=== PATIENT | female | born 1995 | race Native Hawaiian/Other Pacific Islander ===

== ENCOUNTER 2025-07-25 08:23 | Outpatient (REF) | payer MEDICAID, SELFPAY ==
--- OUTSIDE RECORDS SUMMARY | 2025-04-30 05:30 | XMS_ITS ---
Author Organization [facility] Address [address] [place] [id number] Care Team Providers Care Pizzamaker Name Role Phone NO, PCP Primary Care Provider [facility] Mariella Unavailable [phone] REASON FOR VISIT office: Intake/ Po Box Encounters Encounter Location Date Provider Diagnosis [facility] [address] [place] [phone] 04/30/2025 [facility] Plan Of Treatment No Information Progress Notes * Mariluz GARCIADOB:1995 (30 yo F)Acc No.[id number]:04/30/2025 Patient: Mariluz WING Provider: Gretchen WALLIS [facility] :1995 A ge:30 Y S ex:Female Date:04/30/2025 Address:[address] [place], [place] [id number] Pcp:PCP NO Subjective: * Chief Complaints: * 1 . office: Intake/ Po Box. * HPI: S ocial Service: Date of encounter 0 04/30/25. R eferral Source S een at: [facility]. A ction Taken I nsurance eligibility assessed 0 04/30/2025 [id number] MHSTD 04/30/25 gd3, S NAP application 0 04/30/2025 [facility]. CHW assisted client with process and intake,, AR submitted. 04/30/25 gd3. F ollow-up Required:?no. P t comprehension P atient understood process and assisted with process. * Medical History: Objective: Assessment: Plan: * Images: Billing Information: Care Plan Details* * Electronic signature of [facility] on 07/25/2025 at 08:49 AM EDT Sign off status: Pending * Provider: Gretchen WALLIS [facility] Date: 0 04/30/2025 Generated for Kevyn Noel/Antonietta on: 0 07/25/2025 08:49 AM EDT History and Physical Notes * HPI (History of Present Illness) Category Sub-Category Detail Notes Category Not es Social Service Referral Source Seen at: [facility] Follow-up Required: no Pt comprehension Patient understood p rocess and assisted with process Action Taken Insurance eligibilit y assessed: 04/30/2025 [id number] MHSTD 04/30/25 gd3 SNAP application: 04/30/2025 [facility] in [facility]. CHW assisted client with process and intake,, AR submitted. 04/30/25 Date of encounter 04/30/25
--- OUTSIDE RECORDS SUMMARY | 2025-07-25 08:49 | XMS_ITS | Encounter Summary ---
Author Organization [employer] Address [address] [facility] [address] [place] [address] Care Team Providers Care First Assist Name Role Phone Colby Thurman CNP Primary Care Provider [phone] Reason for Visit * Reason Onset Date Comments chart prep 07/20/2025 Encounter Details Date Type Department Care Team ([facility] st Contact Info) Description 07/20/2025 Telephone [facility] MED & PEDS [address] [place] [address] Colby Thurman CNP [address] [place] [address] chart prep Social History Tobacco Use Types Packs/Day Years Used Date Smoking Tobacco: Never Smokeless Tobacco: Never Alcohol Use Standard Drinks/Week Comments Never 0 (1 standard drink = 0.6 oz pur e alcohol) Depression Answer Date Recorded Patient Health Questionnaire-9 Score 2 07/04/2025 Patient Health Questionnaire-9 Score 2 07/04/2025 Last PHQ-9: Questionnaire Data Not on file 0 07/04/2025 Housing Stability Answer Date Recorded What is your housing situation today? I have cinthia camejo 07/04/[address] you li ve. Do you have problems with any of the following? Inadequate heat 07/04/2025 Food Insecurity Answer Date Recorded Within the past 12 months, y ou worried that your food would run out before you got money to buy more: Sometimes True 2024 Within the past 12 months,th e food you bought just didn't last and you didn't have enough money to get more: Sometimes True 07/04/2025 Transportation Answer Date Recorded In the past 12 months, has l ack of transportation kept you from medical appts, meetings, work or from getting things needed for daily living? No 07/04/2025 Utilities Answer Date Recorded In the past 12 months, has t he electric, gas, oil or water company threatened to shut off services in your home? No 07/04/2025 Depression Answer Date Recorded Patient Health Questionnaire-2 Score 1 07/04/2025 Internet Access Answer Date Recorded Internet Access Q1 No 07/04/2025 Internet Access Q2 I cannot afford it 07/04/2025 Comments No Sex and Gender Information Value Date Recorded Sex Assigned at Female 07/04/2025 2:08 PM EDT Legal Sex Female 3:03 PM EDT Gender Identity Female 07/04/2025 2:08 PM EDT Sexual Orientation Straight 07/04/2025 2: 08 PM EDT documented as of this encounter Miscellaneous Notes * Telephone Encounter - Daphney Mcleod [place] - 07/20/2025 1:50 PM EDT Chart Prep Labs: not done Images: not applicable Referrals: appointment pending Vaccines due: PCV20, Tdap, Hep B, Td, HPV, and DTAP Screenings: STI screening and LMP Overdue care gaps: Not applicable documented in this encounter Plan of Treatment Upcoming Encounters Date Type Department Care Team (Late st Contact Info) Description 07/26/2025 10:00 AM EDT Procedure Visit [facility] MED & PEDS [address] [place] [address] Colby Thurman, SONAR SUBSYSTEM EQUIPMENT OPERATOR [address] [place] [address] 10/30/2025 9:30 AM EST Office Visit [facility] OPTOMETRY [address] [place], [place] [phone] Sara Glaser, OD [address] [place] [address] documented as of this encounter Visit Diagnoses Not on filedocumented in this encounter Additional Health Concerns Assessment Noted Time PHQ-9 Depression Total Score: 2 07/04/20 25 4:19 PM EDT documented as of this encounter Care Teams First Assist Relationship Specialty Start Date End Date Colby Thurman CNP [address] [place] [id number] PCP - General Family Medicine 07/04/25 documented as of this encounter
--- OUTSIDE RECORDS SUMMARY | 2025-07-25 08:49 | XMS_ITS | Clinical Summary ---
Author Organization [employer] Address [address] [facility] [address] [facility] [address] [place] [address] Care Team Providers Care Rail Signal Designer Name Role Phone Colby Thurman SUE Primary Care Provider [phone] Allergies Active Allergy Reactions Criticality Noted Date Comments Morphine And Codeine Rash Medium 07/04/2025 Penicillins Rash Low 07/04/2025 Medications No known medications Active Problems Problem Noted Date Diagnosed Date Encounter to establish care 07/05/2025 Assessment & Plan (07/05/2025 1:01 PM EDT): HM due -routine lab work ordered -IMMs due include Tdap, PCV20, covid, flu, will obtain Hep B serologies to determine immunity status -We will plan to repeat pap smear due to inability to obtain records and to ensure normal cytology and HPV status -HIV/Hep C screening ordered -Referral to dental and vision placed Peripheral vascular disease 07/04/2025 Assessment & Plan (07/05/2025 12:57 PM EDT): Pt pedal pulses 2+ bilaterally, no calf tenderness or swelling or excessive heat Discussed conservative measures including lifestyle modifications such as weight loss and prevention of comorbidities such as HLD, HTN, and T2DM I plan to obtain new lab studies to confirm there are no present co morbidities Also based on pt's on hx and LLE atrophy, it appears that pt PVD may be advanced and may require revascularization. I will obtain records from patient, I had her bring records to medical records to be scanned in chart. I also placed a referral to vascular. Asthma 07/04/2025 Assessment & Plan (07/05/2025 12:58 PM EDT): Asthma is controlled, pt not on antiasthmatic medications Appears to be from childhood Encounters Date Type Department Care Team Description 07/20/2025 Telephone [facility] MED & PEDS [address] [place] [address] Colby Thurman CNP chart prep 07/04/2025 2:45 PM EDT Office Visit [facility] MEDICINE [address] [place] [address] Colby Thurman CNP Peripheral vascular disease (CMS/HCC) (Primary Dx); Mild asthma, unspecified whether complicated, unspecified whether persistent; Encounter to establish care 07/04/2025 Travel 07/03/2025 Telephone [facility] [address] [place] [address] Colby Thurman CNP Chart Prep 06/27/2025 Patient Outreach [facility] MED & PEDS [address] [place] [address] Colby Thurman CNP Pre-visit Planning ([facility] unable to reach [facility] [place]) 06/05/2025 Telephone [facility] [address] [place] [address] Andrew Bermudez MD from Last 3 Months Family History Medical History Relation Name Comments Throat cancer Maternal Grandmother Relation Name Status Comments Maternal Grandmother Social History Tobacco Use Types Packs/Day Years Used Date Smoking Tobacco: Never Smokeless Tobacco: Never Tobacco Cessation:Counseling Given: Not Answered Alcohol Use Standard Drinks/Week Comments Never 0 [...] I cannot afford it 07/04/2025 Comments No Intention Date Recorded No desire to become (finding) 0 07/04/2025 Sex and Gender Information Value Date Recorded Sex Assigned at Female 07/04/2025 2:08 PM EDT Legal Sex Female 3:03 PM EDT Gender Identity Female 07/04/2025 2:08 PM EDT Sexual Orientation Straight 07/04/2025 2: 08 PM EDT Last Filed Vital Signs Vital Sign Reading Time Taken Comments Blood Pressure 110/80 07/04/2025 3:09 PM EDT Pulse 87 07/04/2025 3:09 PM EDT Temperature 36.7 C (98 F) 07/04/2025 3:09 PM EDT Respiratory Rate 16 07/04/2025 3:09 PM EDT Oxygen Saturation 99% 07/04/2025 3:09 PM EDT Inhaled Oxygen Concentration - - Weight 83.3 kg (183 lb 9.6 oz) 07/04/2025 3:09 P M EDT Height 160 cm (5' 3 ) 07/04/2025 3:09 PM EDT Body Mass Index 32.52 07/04/2025 3:09 PM EDT Plan of Treatment Upcoming Encounters Date Type Department Care Team (Late st Contact Info) Description 07/26/2025 10:00 AM EDT Procedure Visit [facility] MED & PEDS [address] [place] [address] Colby Thurman, HOUSEKEEPING/LAUNDRY [address] [place] [address] 10/30/2025 9:30 AM EST Office Visit [facility] OPTOMETRY [address] [place] [address] Sara Glaser, OD [address] [place] [address] Health Maintenance Due Date Last Done Comments HIV Screening 1993 HPV Vaccines (1 - 3-dose series) 2008 Hepatitis C Screening 2011 DTaP/Tdap/Td Vaccines (1 - Tdap) 2012 Hepatitis B Vaccines (1 of 3 - 19+ 3-dose series) 2012 Pneumococcal Vaccine: Pediatrics (0 to 5 Years) and At-Risk Patients (6 to 49) Years (1 of 2 - PCV) 2012 Pap Smear 2014 Cervical Cancer Screening 2023 HPV/Cotest 2023 COVID-19 Vaccine (1 - 2023-2 5 season) 2025 Influenza Vaccine (#1) 2025 Alcohol/Substance Use Screening 07/04/2026 07/04/2025 Depression Screening 07/04/2026 07/04/2025, 07/04/2025 Disability Screening 07/04/2026 07/04/2025 SDOH Screening 07/04/2026 07/04/2025 Tobacco Screening 07/04/2026 07/04/2025 Family Planning (PISQ) 07/05/2026 07/05/2025 Zoster Vaccines (1 of 2) 2043 RSV Patients and Patients Aged 60 years or older (1 - 1-dose 75+ series) 2068 HIB Vaccines Aged Out No longer eligi ble based on patient's age to complete this topic Hepatitis A Vaccines Aged Out No long er eligible based on patient's age to complete this topic IPV Vaccines Aged Out No longer eligi ble based on patient's age to complete this topic Meningococcal B Vaccine Aged Out No l onger eligible based on patient's age to complete this topic Meningococcal Vaccine Aged Out No ryan troy eligible based on patient's age to complete this topic RSV under 20 months Aged Out No longe r eligible based on patient's age to complete this topic Rotavirus Vaccines Aged Out No longer eligible based on patient's age to complete this topic Insurance [facility] C3 Care Teams Rail Signal Designer Relationship Specialty Start Date End Date Colby Thurman CNP [address] [place] [phone] PCP - General Family Medicine 07/04/25
--- OUTSIDE RECORDS SUMMARY | 2025-07-25 08:50 | XMS_ITS | Patient Health Record ---
Author Organization [facility] Address [address] [place] [address] Care Team Providers Care Oil Truck Driver Name Role Phone NO, PCP Primary Care Provider [facility], [facility] Unavailable [phone] Reason For Referral No Information Encounters Encounter Location Date Provider Diagnosis [facility] [address] [place], [place] [phone] 04/30/2025 [facility] Plan Of Treatment No Information Insurance Providers Payer Name Payer Address Payer Phone Subscriber Number Group Number Insured Name Patient Relationship to Insured Coverage Start Date Coverage End Date [place] Medicaid Standard [address] [place] [address] [phone] [id number] Mariluz Webb Self - patient is the insured
[2025-07-25 11:34] LABS: MANUAL DIFF FLAG NO
[2025-07-25 11:38] LABS: Hematocrit 37.1 % (37.0-47.0); Hemoglobin 12.2 g/dl (12.0-16.0); Imm Gran Abs Auto 0.00 X10*3/uL (0.00-0.03); Imm Gran Pct Auto 0.0 % (0.0-0.4); Lymphocytes Absolute Auto 1.6 X10*3/uL (1.2-4.9); Mean Corpuscular HGB Conc 32.9 g/dl (31.0-35.0); Mean Corpuscular Hemoglobin 27.1 pg (27.0-33.0); Mean Corpuscular Volume 82.3 fL (80.0-98.0); NRBC Abs Auto 0.000 X10*3/uL (0.0-0.012); NRBC Pct Auto 0.0 /100WBC (0.0-0.2); Platelet Count 301 X10*3/uL (160-400); Red Blood Count 4.51 X10*6/uL (4.20-5.50); White Blood Count 5.2 X10*3/uL (4.8-10.8)
[2025-07-25 11:50] LABS: Hemoglobin A1C 113.1054 umol/L; Total Hemoglobin (HGBA1C) 3191.1588 umol/L
[2025-07-25 12:06] LABS: Alanine Aminotransferase 19 U/L (0-31); Albumin Level 4.5 g/dL (3.5-5.0); Alkaline Phosphatase 63 U/L (39-117); Anion Gap 9 (12-20); Aspartate Amino Transferase 26 U/L (5-31); Blood Urea Nitrogen 13 mg/dL (9-16); Calcium 8.6 mg/dL (8.4-10.2); Carbon Dioxide 24 mmol/L (22-29); Chloride 109 mmol/L (96-108); Cholesterol 145 mg/dL (<200); Estimated Glomerular Filt Rate > 60; HDL Cholesterol 41 mg/dL (>40); Potassium 3.5 mmol/L (3.3-5.1); Sodium 138 mmol/L (135-145); Total Protein 7.3 g/dL (6.5-8.0); Triglycerides 69 mg/dL (<150)
[2025-07-25 12:27] LABS: HBS Num1 5.72 mIU/mL (0-7.99); HBc Num1 0.12 S/CO (0.00-0.79); HBsAGNum1 0.51 S/CO (0.00-0.99); HIV Num 1 0.05 S/CO (0.00-0.99); Hepatitis B Surface Antigen Negative (Negative); ~HepC Num1 0.09 S/CO (0.00-0.79); ~Hepatitis B Surface Antibody NONREACTIVE (Nonreactive); ~Hepatitis C Antibody Nonreactive (Nonreactive)
== END 2025-07-25 08:24 | disposition home or self-care (01) ==
LOC: HO.HHCL 08:23
DX: Z76.89 Persons encountering health services in other specified circumstances (principal); Z11.59 Encounter for screening for other viral diseases
CPT/HCPCS: 36415; 80053; 80061; 83036; 84443; 85025; 86704; 86706; 86803; 87340; 87389